=== PATIENT | female | born 1985 | race African-American/Black ===

== ENCOUNTER 2016-11-20 21:07 | Emergency (ER) | payer OTHER ==
[~2016-11-20] VITALS: Ht 167.6 cm; Wt 89.4 kg
[~2016-11-20 21:07] MED LIST: ASPIRIN EC81 M1 PO; AURALGAN EAR DR14 ML OT; COUMADIN 10MG T10 M1 PO; COUMADIN 5 MG TA5 M1 PO; COUMADIN PO; COUMADIN5 MG; ENOXAPARIN120 MG/0.8 SQ; ENOXAPARIN40 MG/0.1 SUBQ; FLEXERIL PO; LORTABELXR PO; NEXIUM40 MG PO; NORCO 5-325 TA1 EACH PO; ONDANSETRON ODT4 MG PO; PERCOCET 5-3251 EACH PO; PHENERGAN 25 MG25 M1 PO; PHENERGAN 25 MG25 MG PO; PRENATAL TABLE1 EAC3 PO; PREVACID 30MG C30 M1 PO; PROPOXYPHENE HC65 M1 OR; PROTONIX 20 MG20 M1 PO; PROTONIX40 MG PO; REGLAN 5 MG TAB5 M1 GT; TRAMADOL; TRAMADOL 50 MG50 MG PO; ZOFRAN4 MG PO; [UNRECOGNIZED DRUG - OTHER] PO
[2016-11-20] MEDS ORDERED: COUMADIN7.5 MG PO (21:33)
[2016-11-20 21:55] LABS: ABSOLUTE NEUTROPHILS 7.6 thou/uL (1.4-8.2); BASOPHILS 0.6 % (0.0-2.0); EOSINOPHILS 0.9 % (0.0-3.0); HEMATOCRIT 36.3 % (37.0-47.0); HEMOGLOBIN 11.9 gm/dL (12.0-15.0); LYMPHOCYTES 15.8 % (24.0-44.0); MANUAL DIFF NO; MCHC 32.8 g/dL (28.0-37.0); MCV 82.1 fL (80.0-100.0); PLATELET COUNT 225 thou/uL (150-400); POLYS 77.7 % (36.0-66.0); RBC 4.42 mil/uL (4.20-5.00); RDW 16.7 % (10.5-14.5); WBC 9.7 thou/uL (4.0-11.0)
[2016-11-20 21:58] LABS: CALCIUM 9.5 mg/dL (8.5-10.1); CREATININE 1.3 mg/dL (0.6-1.0); POTASSIUM 3.6 mmol/L (3.5-5.1)
[2016-11-20 23:26] LABS: URINE BILIRUBIN NEGATIVE (Negative); URINE BLOOD 2+ (Negative); URINE COLOR YELLOW; URINE GLUCOSE-RANDOM* NEGATIVE (Negative); URINE KETONES NEGATIVE (Negative); URINE NITRITE POSITIVE (Negative); URINE PROTEIN (DIPSTICK) 2+ (Negative); URINE UROBILINOGEN 0.2 E.U./dl (0.2-1.0)
[2016-11-20 23:42] LABS: CASTS None Seen /LPF (None Seen); SQUAMOUS None Seen /LPF (0-3); URINE WBC >25 Many /HPF (0-5)
[2016-11-20 23:43] LABS: CRYSTALS None Seen /LPF (None Seen)
[2016-11-20] MEDS ORDERED: KEFLEX500 MG PO (23:46)
[2016-11-20] MEDS ORDERED: NAPROSYN500 MG PO (23:46)
[2016-11-21 00:15] VITALS: BP 107/50
[2016-11-21] MEDS ORDERED: OXYCODONE HCL 55 MG PO (19:48)
== END 2016-11-21 00:15 | disposition home or self-care (01) ==
LOC: ER 21:07
PROVIDERS: Physician Assistant
DX: N39.0 Urinary tract infection, site not specified (principal); E65 Localized adiposity; F10.99 Alcohol use, unspecified with unspecified alcohol-induced disorder; Z86.711 Personal history of pulmonary embolism; Z88.8 Allergy status to other drugs, medicaments and biological substances

== ENCOUNTER 2016-11-21 15:28 | Inpatient (IN) | payer OTHER ==
[~2016-11-21] VITALS: Ht 167.6 cm; Wt 102.4 kg
--- NOTE | ~2016-11-21 | HC ---
[facility] [address] CONSULTATION Name: DESMOND FIGUEROA Room #: 309-P ADM IN M.R.#: [id number] Admission: 11/21/16 Attend Phys: José Antonio Walker MD Discharge: Date of : 89 Report #: [id number] THIS REPORT FOR: //name// CC: José Antonio HOPKINS REASON FOR CONSULTATION: Lower abdominal pain, rule out mesh infection. HISTORY OF PRESENT ILLNESS: The patient is a 31-year-old who was admitted on . She has been complaining of lower abdominal pain that started Friday. The patient has had fever. The patient was also found to have E. coli . Initially thinking that she had urinary tract infection. 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 Dr. Hannah was not convinced with that. He was concerned about the mesh that she has and consultation is placed for that. The patient has had a complicated surgical history starting in 01/2016. Apparently, she has some kind of obstruction or infection and had multiple resection of bowel. Then in 05/2016 the patient had a hernia repair in the lower transverse incision. She says that maybe it is biological implant use. I do not have report from neither surgeries. This was performed by Dr. Jasper Aquino. The patient was asked why she did not go to [place], she said she now lives in this area. She has had nausea, no vomiting. The pain is in the lower part of her abdomen. The patient did have a CT performed. No obvious infection identified. I did review it. I believe the mesh area has slight thickening, but there is no fluid around it or air. I can see several staple lines on the CT scan and 3 different spots. There is a large cystic structure in the right side, possibly ovary. PHYSICAL EXAMINATION: The patient is alert. She does have pannus in the lower abdomen. Her scar is pull downward. Where she does have lower tenderness, which is mild. There is no mass, guarding. There is no redness or cellulitis of the wall. IMPRESSION: The patient with bacteremia, etiology is known. She does have a large cyst in her ovary. Ultrasound would be helpful. I do think the mesh that she had from May surgery is infected but would think it would be unusual to have Escherichia coli in that. We will try to get operative report to review that. At this point, I recommend continue antibiotic treatment. With her having so many surgeries I wonder if her pain could have been from partial obstruction. If she did have a biological material used for the mesh repair, I would think that would be fairly resistant to infection. I do not think the mesh looks like its anterior to the wall. I do think she has any connection to intestine or fistula development. By: [id number] Alber Oscar MD /nt
--- NOTE | ~2016-11-21 | HC ---
[facility] [place] [address] CONSULTATION Name: DESMOND FIGUEROA Room #: 309-P ADM IN M.R.#: [id number] Admission: 11/21/16 Attend Phys: Arpit Rosales DO Discharge: Date of : 89 Report #: [id number] THIS REPORT FOR: //name// CC: EMI Rosales REASON FOR CONSULTATION: I was asked to evaluate concerning Gram-negative bacteremia. HISTORY OF PRESENT ILLNESS: The patient is a 31-year-old who presents with now a 3-day history of increased abdominal pain in the lower abdomen. She notes a history of a ventral hernia with compromised bowel that was treated by at [facility] in May 2016. She has also had a small-bowel obstruction in January 2016. She has had a tubal ligation. She has had diagnosis of obstructive sleep apnea. She has also had anxiety and depression. She was evaluated in the emergency room on 11/20/2016. There, she had positive urinalysis with pyuria and bacteriuria. Treated with cephalexin. She later returned the next day with fever to 103 degrees. She has had chills, headache, and mild nausea. Denies any dysuria, frequency, or flank pain. Still describes lower abdominal pain, which has persisted. She has had some constipation. There has been no reported diarrhea. No vomiting. Appetite has been fair. Denies any trauma. She is on Coumadin for pulmonary embolus. She has been on this for several years. ALLERGIES: TAPE. MEDICATIONS: She was on Coumadin, pain meds, and cephalexin, now on ceftriaxone. PAST MEDICAL HISTORY: As noted above. FAMILY HISTORY: Noncontributory. SOCIAL HISTORY: Nonsmoker, no significant alcohol intake. 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 She has had C-sections. No HIV risk factors. REVIEW OF SYSTEMS: Noted above with no cough, sputum, or rash. PHYSICAL EXAMINATION: VITAL SIGNS: Maximum temperature has been 103 degrees. She is currently afebrile and hemodynamically stable. GENERAL: The patient was lying in bed, in no acute distress. She was obese. SKIN: Unremarkable. LYMPH: Unremarkable. HEENT: Unremarkable. CHEST: Clear. [address] [address] CONSULTATION Name: DESMOND FIGUEROA Room #: 309-P [facility] IN M.R.#: [id number] Admission: 11/21/16 Attend Phys: Arpit Rosales, Discharge: Date of : 89 Report #: [id number] HEART: Regular without murmur. ABDOMEN: Had a moderately large abdominal pannus. Beneath this, there is a scar from her lower abdominal incision where she had ventral hernia repair. She has marked tenderness in the periumbilical to lower abdomen to the suprapubic region. She had fullness in this area with no definite mass identified. A bit difficult exam due to her size. No hepatosplenomegaly or other masses. Tenderness was localized mostly toward the midline. No CVA tenderness. EXTREMITIES: Unremarkable. NEUROLOGIC: Normal. LABORATORY STUDIES: Sodium 133, potassium 4, bicarbonate 27, creatinine 1. Liver function test normal. Lipase normal. INR 1. Hemoglobin 10.4, platelet count 131,000, white count 4.2 with unremarkable differential. Beta-hCG negative. Sedimentation rate 56. Urinalysis, wbc's and bacteria present. Urine culture was not done. Blood cultures showing Gram-negative bacilli 2 of 2, identification further pending. Ultrasound of the abdomen shows a horseshoe kidney and mild increasing common bile duct size. CT scan of the abdomen and pelvis shows inflammatory changes to abdominal pannus. No definite fluid collection identified. IMPRESSION: A 31-year-old with fever and abdominal pain. I suspect infection related to her abdominal pannus and ventral hernia repair. Despite not being able to identify an abscess on the CT scan, her examination and history suggest such. She also has cystitis, which is clinically asymptomatic. 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 He will take this into consideration pending further culture results. We would therefore recommend continuing Gram-negative coverage and we would have general surgery evaluate her abdominal process. By: [id number] [id number] Eliot Hannah MD /nt
[~2016-11-21 15:28] MED LIST changes: +COUMADIN7.5 MG PO; +KEFLEX500 MG PO; +NAPROSYN500 MG PO
[2016-11-21 15:33] VITALS: BP 88/65
[2016-11-21 16:20] LABS: HEMATOCRIT 38.3 % (37.0-47.0); HEMOGLOBIN 12.6 gm/dL (12.0-15.0); MCHC 32.8 g/dL (28.0-37.0); MCV 82.2 fL (80.0-100.0); PLATELET COUNT 190 thou/uL (150-400); RBC 4.66 mil/uL (4.20-5.00); RDW 16.7 % (10.5-14.5); WBC 6.8 thou/uL (4.0-11.0)
[2016-11-21 16:24] LABS: MANUAL DIFF YES
[2016-11-21 16:32] LABS: CALCIUM 9.9 mg/dL (8.5-10.1); CREATININE 1.3 mg/dL (0.6-1.0); POTASSIUM 3.9 mmol/L (3.5-5.1)
[2016-11-21 16:37] LABS: ALBUMIN 3.8 g/dL (3.4-5.0); TOTAL BILIRUBIN 0.7 mg/dL (<0.1-1.0); TOTAL PROTEIN 8.6 g/dL (6.4-8.2)
[2016-11-21 16:50] LABS: ABSOLUTE NEUTROPHILS 6.2 thou/uL (1.4-8.2); TOTAL CELL COUNT 100
[2016-11-21 16:51] LABS: ANISOCYTOSIS 1+; PLATELET ESTIMATE NORMAL
[2016-11-21 18:21] VITALS: BP 101/41
[2016-11-21 18:23] LABS: URINE BILIRUBIN NEGATIVE (Negative); URINE BLOOD 2+ (Negative); URINE COLOR YELLOW; URINE GLUCOSE-RANDOM* NEGATIVE (Negative); URINE KETONES NEGATIVE (Negative); URINE NITRITE NEGATIVE (Negative); URINE PROTEIN (DIPSTICK) TRACE (Negative); URINE SPECIFIC GRAVITY <= 1.005 (1.003-1.035); URINE UROBILINOGEN 0.2 E.U./dl (0.2-1.0)
[2016-11-21 18:29] LABS: SQUAMOUS 0-3 Few /LPF (0-3); URINE RBC 0-2 Rare /HPF (0-2); URINE WBC >25 Many /HPF (0-5)
[2016-11-21 18:30] LABS: CASTS None Seen /LPF (None Seen); CRYSTALS None Seen /LPF (None Seen)
[2016-11-21 19:05] VITALS: BP 104/50
[2016-11-21 19:31] LABS: PROTIME 10.7 Seconds (9.3-11.4)
[2016-11-21 19:40] VITALS: BP 100/48
[2016-11-21] MEDS ORDERED: OXYCODONE HCL 55 MG PO (19:48)
[2016-11-22 00:05] VITALS: BP 103/51
[2016-11-22 04:30] VITALS: BP 98/57
[2016-11-22 06:33] LABS: HEMATOCRIT 36.1 % (37.0-47.0); HEMOGLOBIN 11.9 gm/dL (12.0-15.0); MCH 27.4 pg (26.0-34.0); MCHC 32.9 g/dL (28.0-37.0); MCV 83.2 fL (80.0-100.0); PLATELET COUNT 153 thou/uL (150-400); RBC 4.34 mil/uL (4.20-5.00); RDW 16.8 % (10.5-14.5)
[2016-11-22 06:38] LABS: CALCIUM 8.2 mg/dL (8.5-10.1); CREATININE 1.1 mg/dL (0.6-1.0)
[2016-11-22 06:40] LABS: MANUAL DIFF YES
[2016-11-22 08:06] LABS: ABSOLUTE NEUTROPHILS 7.1 thou/uL (1.4-8.2); TOTAL CELL COUNT 100
[2016-11-22 08:07] LABS: ANISOCYTOSIS 1+
[2016-11-22 08:15] VITALS: BP 97/52
[2016-11-22 12:17] LABS: PROTIME 10.7 Seconds (9.3-11.4)
[2016-11-22 16:00] VITALS: BP 119/71
[2016-11-22 19:35] VITALS: BP 104/60
[2016-11-23 03:40] VITALS: BP 114/55
[2016-11-23 07:10] LABS: ABSOLUTE NEUTROPHILS 2.8 thou/uL (1.4-8.2); BASOPHILS 0.7 % (0.0-2.0); EOSINOPHILS 0.4 % (0.0-3.0); HEMATOCRIT 32.4 % (37.0-47.0); HEMOGLOBIN 10.4 gm/dL (12.0-15.0); LYMPHOCYTES 21.3 % (24.0-44.0); MCH 26.7 pg (26.0-34.0); MCHC 32.1 g/dL (28.0-37.0); MCV 83.2 fL (80.0-100.0); MONOCYTES 10.6 % (1.0-8.0); PLATELET COUNT 131 thou/uL (150-400); RBC 3.89 mil/uL (4.20-5.00); RDW 16.5 % (10.5-14.5); WBC 4.2 thou/uL (4.0-11.0)
[2016-11-23 07:13] LABS: MANUAL DIFF NO
[2016-11-23 07:19] LABS: CALCIUM 8.1 mg/dL (8.5-10.1)
[2016-11-23 07:21] LABS: PROTIME 10.4 Seconds (9.3-11.4)
[2016-11-23 08:11] VITALS: BP 103/58
[2016-11-23 15:54] VITALS: BP 120/61
[2016-11-23 19:10] VITALS: BP 108/57
[2016-11-24 05:00] LABS: INR 1.1; PROTIME 11.1 Seconds (9.3-11.4)
[2016-11-24 05:30] VITALS: BP 112/63
[2016-11-24 08:41] VITALS: BP 103/65
[2016-11-24 16:06] VITALS: BP 107/66
[2016-11-25 04:44] VITALS: BP 114/74
[2016-11-25 06:35] LABS: HEMATOCRIT 34.9 % (37.0-47.0); HEMOGLOBIN 11.4 gm/dL (12.0-15.0); MCHC 32.8 g/dL (28.0-37.0); MCV 82.5 fL (80.0-100.0); PLATELET COUNT 195 thou/uL (150-400); RBC 4.24 mil/uL (4.20-5.00); RDW 16.8 % (10.5-14.5); WBC 4.1 thou/uL (4.0-11.0)
[2016-11-25 06:36] LABS: MANUAL DIFF YES
[2016-11-25 06:48] LABS: INR 1.4; PROTIME 14.4 Seconds (9.3-11.4)
[2016-11-25 06:52] LABS: CALCIUM 8.8 mg/dL (8.5-10.1); POTASSIUM 4.3 mmol/L (3.5-5.1)
[2016-11-25 07:38] VITALS: BP 110/48
[2016-11-25 10:19] LABS: ABSOLUTE NEUTROPHILS 1.4 thou/uL (1.4-8.2); ANISOCYTOSIS SLIGHT; ATYPICAL LYMPHS 3 %; LARGE PLATELETS OCCASIONAL; POIKILOCYTOSIS SLIGHT; TOTAL CELL COUNT 100
[2016-11-25] MEDS ORDERED: BACTRIM DS TAB1 EACH PO (17:39)
[2016-11-25] MEDS ORDERED: OXYCODONE HCL 55 MG PO (17:39)
[2016-11-25 19:32] VITALS: BP 122/81
[2016-11-26 04:20] VITALS: BP 123/58
[2016-11-26 07:13] LABS: ALBUMIN 3.2 g/dL (3.4-5.0); ALKALINE PHOSPHATASE 81 U/L (46-116); DIRECT BILIRUBIN < 0.1 mg/dL (<0.1-0.3); SGOT 20 U/L (15-37); SGPT 28 U/L (30-65); TOTAL BILIRUBIN 0.1 mg/dL (<0.1-1.0); TOTAL PROTEIN 8.3 g/dL (6.4-8.2)
[2016-11-26 07:50] VITALS: BP 110/81
[2016-11-26 10:28] LABS: INR 1.7; PROTIME 17.6 Seconds (9.3-11.4)
[2016-11-26 16:01] VITALS: BP 107/69
[2016-11-26 19:06] VITALS: BP 107/69
== END 2016-11-26 19:22 | disposition home or self-care (01) | DRG 690 ==
LOC: ER 15:28 → 3N 18:05 → 4S 18:05 → EROBS 18:05 → 4S 19:41 → 3N 11-22 15:19 → ENTRNSPT 11-26 19:14 → 3N 11-26 19:22
PROVIDERS: Hospitalist; Internal Medicine Endocrinology, Diabetes & Metabolism; Internal Medicine Geriatric Medicine; Physician Assistant; Specialist
DX: N10 Acute pyelonephritis (principal); R65.10 Systemic inflammatory response syndrome (SIRS) of non-infectious origin without acute organ dysfunction; M79.3 Panniculitis, unspecified; D64.9 Anemia, unspecified; B96.20 Unspecified Escherichia coli [E. coli] as the cause of diseases classified elsewhere; Z86.711 Personal history of pulmonary embolism; Z79.899 Other long term (current) drug therapy; Z88.8 Allergy status to other drugs, medicaments and biological substances; Z90.710 Acquired absence of both cervix and uterus
CPT/HCPCS: 10094; 10195

== ENCOUNTER 2020-09-24 16:06 | Inpatient (IN) | payer OTHER ==
[~2020-09-24] VITALS: Ht 170.2 cm; Wt 133.5 kg
[2020-09-24 16:06] VITALS: BP 127/94
[~2020-09-24 16:06] MED LIST changes: +BACTRIM DS TAB1 EACH PO; +OXYCODONE HCL 55 MG PO
[2020-09-24 16:37] LABS: BE(vivo) 2.4 mmol/L (-2 to +3); PCO2 36.5 mmHg (35.0-45.0); PO2 61.1 mmHg (80.0-100.0)
[2020-09-24 16:44] LABS: ABSOLUTE NEUTROPHILS 5.9 thou/uL (1.4-8.2); BASOPHILS 0.9 % (0.0-2.0); EOSINOPHILS 0.3 % (0.0-3.0); HEMATOCRIT 32.7 % (37.0-47.0); HEMOGLOBIN 10.3 gm/dL (12.0-15.0); LYMPHOCYTES 16.7 % (24.0-44.0); MCH 26.1 pg (26.0-34.0); MCHC 31.4 g/dL (28.0-37.0); MCV 82.9 fL (80.0-100.0); MONOCYTES 6.4 % (1.0-8.0); PLATELET COUNT 284 thou/uL (150-400); POLYS 75.7 % (36.0-66.0); RBC 3.95 mil/uL (4.20-5.00); RDW 18.1 % (10.5-14.5); WBC 7.8 thou/uL (4.0-11.0)
[2020-09-24 16:52] LABS: ANION GAP 12 mmol/L (7-16); BUN 11 mg/dL (7-18); CALCIUM 8.6 mg/dL (8.5-10.1); CHLORIDE 102 mmol/L (98-107); CO2 26 mmol/L (21-32); GLUCOSE 101 mg/dL (74-106); POTASSIUM 3.4 mmol/L (3.5-5.1); SODIUM 140 mmol/L (136-145)
[2020-09-24 17:02] LABS: ALBUMIN 3.2 g/dL (3.4-5.0); SGOT 35 U/L (15-37); SGPT 41 U/L (30-65); TOTAL BILIRUBIN 0.2 mg/dL (0.2-1.0); TROPONIN-I <0.06 ng/mL (<0.06)
[2020-09-24] MEDS ORDERED: COUGH & CHEST177 ML PO (17:29)
[2020-09-24] MEDS ORDERED: PREDNISONE 20 M20 MG PO (17:30)
[2020-09-24] MEDS ORDERED: PROAIR HFA8.5 GM INH (17:30)
[2020-09-24] MEDS ORDERED: JANTOVEN5 MG PO (17:30)
[2020-09-24 18:19] VITALS: BP 165/75
[2020-09-24 18:22] LABS: APTT 20.3 Seconds (24.5-32.8); INR 0.97; PROTIME 10.6 Seconds (10.5-12.1)
[2020-09-24 18:26] VITALS: BP 155/80
[2020-09-24 18:59] VITALS: BP 129/68
[2020-09-24 19:41] LABS: ANISOCYTOSIS 2+; HYPOCHROMASIA 1+
[2020-09-24 20:23] LABS: CHOLESTEROL 139 mg/dL (<200); HDL CHOLESTEROL 60 mg/dL (>40); LDL CHOLESTEROL 64 mg/dL (<100); TC:HDL 2.3 Ratio (Not establshd); TRIGLYCERIDE 76 mg/dL (<150); VLDL 15 mg/dL (<40)
[2020-09-24 23:42] VITALS: BP 126/59
[2020-09-25] VITALS (8 sets, daily range): BP systolic 121–147; BP diastolic 71–87
--- NOTE | 2020-09-25 07:50 | EKG ---
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 : 1985 Requested By: Daniel Maravilla Order Number: [id number] MD: Harvey Meeks Measurements Intervals [place] Rate: 60 P: 39 WV: 163 QRS: 64 QRSD: 61 T: 192 QT: 605 QTc: 605 Interpretive Statements Sinus arrhythmia Nonspecific T abnormalities, diffuse leads Prolonged QT interval Compared to ECG 09/24/2020 16:08:48 Prolonged QT interval now present Sinus rhythm no longer present T-wave abnormality still present Electronically Signed On 09-25-2020 7:50:35 CDT by Harvey Meeks [email or web address] <ELECTRONICALLY SIGNED> By: Harvey Meeks MD, [facility] 09/25/20 0750 1724 1724 Harvey Meeks MD, [facility] /EPI
--- NOTE | 2020-09-25 07:50 | EKG ---
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1985 Requested By: Daniel Maravilla Order Number: [id number] MD: Harvey Meeks Measurements Intervals [place] Rate: 73 P: 39 OR: 158 QRS: 36 QRSD: 88 T: 205 QT: 399 QTc: 440 Interpretive Statements Sinus rhythm Nonspecific T abnormalities, diffuse leads Compared to ECG 07/22/2013 15:33:09 T-wave abnormality now present ST (T wave) deviation no longer present Possible ischemia no longer present Electronically Signed On 09-25-2020 7:50:32 CDT by Harvey Meeks [email or web address] <ELECTRONICALLY SIGNED> By: Harvey Meeks MD, [facility] 09/25/20 0750 1608 1608 Harvey Meeks MD, [facility] /EPI
--- NOTE | 2020-09-25 07:51 | EKG ---
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 : 1985 Requested By: Devin Thornton Order Number: [id number] MD: Harvey Meeks Measurements Intervals [place] Rate: 78 P: 54 [place]: 143 QRS: 46 QRSD: 81 T: -59 QT: 421 QTc: 480 Interpretive Statements Sinus rhythm Nonspecific T abnormalities, lateral leads Borderline prolonged QT interval Compared to ECG 09/24/2020 17:24:20 Sinus arrhythmia no longer present T-wave abnormality still present Electronically Signed On 09-25-2020 7:51:23 CDT by Harvey Meeks [email or web address] <ELECTRONICALLY SIGNED> By: Harvey Meeks MD, [facility] 09/25/20 0751 0404 0404 Harvey Meeks MD, [facility] /EPI
--- NOTE | 2020-09-25 11:00 | NUR ---
Chart review. Discussed during los. CM visited with her at bedside. Intro to cm and dcp. She lives home with sig other. Independent when feeling ok. Had oxygen at home in the past and no longer has home o2. She will need outpt sleep study. PCP is at the the [facility] office. No dme. manage own medications. No hh or rehab in the past. Will cont following as needed for dc needs.
--- NOTE | 2020-09-25 13:45 | 2DMMODE ---
[facility] [place] [address] 2 D/M-MODE ECHOCARDIOGRAM Name: DESMOND FIGUEROA Room #: 210-P ADM IN M.R.#: [id number] Admission: 09/24/20 Attend Phys: Mohit Sidhu Discharge: Date of : 89 Report #: [id number] THIS REPORT FOR: cc: FAM - No family physician/PCP FAM - No family physician/PCP Reji Torres MD ~ APPROVED REPORT Study performed: 09/25/2020 12:51:34 EXAM: Comprehensive 2D, Doppler, and color-flow Echocardiogram Patient Location: Bedside Room #: 210 Status: routine BSA: 2.26 HR: 83 bpm BP: 132/79 mmHg Rhythm: NSR Other Information Study Quality: Adequate Indications Short of breath, chest pain. Hx: PE, morbid obesity. 2D Dimensions IVSd: 8.51 (7-11mm) LVOT Diam: 20.01 (18-24mm) LVDd: 51.41 mm PWd: 9.66 (7-11mm) Ascending Ao: 27.96 (22-36mm) LVDs: 33.58 (25-40mm) Left Atrium: 37.03 (27-40mm) Aortic Root: 27.92 mm Volumes Left Atrial Volume (Systole) Single Plane 4CH: 46.79 mL Single Plane 2CH: 54.70 mL LA ESV Index: 23.00 mL/m2 Aortic Valve AoV Peak Raymon.: 1.78 m/s AO Peak Gr.: 12.71 mmHg LVOT Max P.57 mmHg LVOT Max V: 1.18 m/s LINDA Vmax: 2.08 cm2 [facility] [address] [place] [address] 2 D/M-MODE ECHOCARDIOGRAM Name: DESMOND FIGUEROA Room #: 210-P [facility] IN [facility]#: [id number] Admission: 09/24/20 Attend Phys: Mohit Henry May Discharge: Date of : 89 Report #: [id number] Mitral Valve E/A Ratio: 1.3 MV Decel. Time: 274.60 ms MV E Max Raymon.: 1.15 m/s MV A Raymon.: 0.91 m/s MV PHT: 79.63 ms IVRT: 59.98 ms Pulmonary Valve PV Peak Raymon.: 1.00 m/s PV Peak Gr.: 3.99 mmHg Pulmonary Vein P Vein S: 0.63 m/s P Vein A: 0.32 m/s P Vein D: 0.59 m/s P Vein A Dur.: 76.1 msec P Vein S/D Ratio: 1.07 Tricuspid Valve TR Peak Raymon.: 2.93 m/s RAP Estimate: 10.00 mmHg TR Peak Gr.: 34.23 mmHg PA Pressure: 44.00 mmHg Left Ventricle The left ventricle is normal size. There is normal LV segmental wall motion. There is normal left ventricular wall thickness. Left ventricular systolic function is normal. LVEF is 60-65%. The left ventricular diastolic function is normal. Right Ventricle The right ventricle is normal size. The right ventricular systolic function is normal. Atria The left atrium size is normal. The right atrium size is normal. Aortic Valve The aortic valve is normal in structure. No aortic regurgitation is present. There is no aortic valvular stenosis. Mitral Valve The mitral valve is normal in structure. Mild to moderate mitral regurgitation with an eccentric jet. No evidence of mitral valve stenosis. Tricuspid Valve [facility] [address] [place] [address] 2 D/M-MODE ECHOCARDIOGRAM Name: DESMOND FIGUEROA Room #: 210-[facility] IN M.R.#: [id number] Admission: 09/24/20 Attend Phys: Mohit Dunlap Discharge: Date of : 89 Report #: [id number] The tricuspid valve is normal in structure. Moderate tricuspid regurgitation. Estimated PAP is 40-45mmHg. Pulmonic Valve The pulmonary valve is normal in structure. There is no pulmonic valvular regurgitation. Great Vessels The aortic root is normal in size. The ascending aorta is normal in size. IVC is dilated and partially collapses. Pericardium There is no pericardial effusion. <Conclusion> The left ventricle is normal size. Left ventricular systolic function is normal. LVEF is 60-65%. The right ventricle is normal size. The left atrium size is normal. The aortic valve is normal in structure. The mitral valve is normal in structure. Mild to moderate mitral regurgitation with an eccentric jet. The tricuspid valve is normal in structure. Moderate tricuspid regurgitation. Estimated PAP is 40-45mmHg. The pulmonary valve is normal in structure. The aortic root is normal in size. There is no pericardial effusion. <ELECTRONICALLY SIGNED> By: Reji Torres MD 09/25/20 1345 1345 1345 Reji Torres MD /INF
[2020-09-26 03:35] LABS: INR 1.28; PROTIME 13.8 Seconds (10.5-12.1)
[2020-09-26 03:40] VITALS: BP 140/78
--- NOTE | 2020-09-26 07:13 | NUR ---
USES THE BIPAP THIS SHIFT;TOOK A BREAK FROM THE BIPAP FOR FEW HOURS TO CALL HER [facility].PAIN FAIRLY CONTROLLED.COMPLAIN IF ITCHINESS;BENADRYL GIVEN.MONITOR SHOWS SINUS DONNELL ARRHYTHMIA.POC CONTINUED.
[2020-09-26 08:00] VITALS: BP 137/83
[2020-09-26 16:52] VITALS: BP 138/71
[2020-09-26 20:15] VITALS: BP 133/70
[2020-09-27 04:34] LABS: HEMOGLOBIN 9.7 gm/dL (12.0-15.0); MCH 26.3 pg (26.0-34.0); MCHC 31.2 g/dL (28.0-37.0); MCV 84.3 fL (80.0-100.0); RBC 3.68 mil/uL (4.20-5.00); RDW 18.3 % (10.5-14.5); WBC 12.4 thou/uL (4.0-11.0)
[2020-09-27 04:45] VITALS: BP 126/72
[2020-09-27 05:02] LABS: INR 1.8; PROTIME 19.1 Seconds (10.5-12.1)
[2020-09-27 07:00] VITALS: BP 142/88
[2020-09-27] MEDS ORDERED: PREDNISONE 20 M20 M1 PO (11:01)
[2020-09-27] MEDS ORDERED: PEPCID20 MG PO (11:01)
[2020-09-27] MEDS ORDERED: ACETAMINOPHEN325 M1 PO (11:01)
[2020-09-27] MEDS ORDERED: MELATONIN5 M1 PO (11:01)
[2020-09-27] MEDS ORDERED: IBUPROFEN 200200 M1 PO (11:01)
[2020-09-27] MEDS ORDERED: PULMICORT0.5 MG/21 INH (11:01)
[2020-09-27] MEDS ORDERED: HYDROCODON-ACE1 EAC7 PO (11:01)
[2020-09-27] MEDS ORDERED: TESSALON PERLE100 MG PO (11:01)
[2020-09-27 11:28] VITALS: BP 142/88
== END 2020-09-27 13:24 | disposition home or self-care (01) | DRG 193 ==
LOC: ER 16:06 → EROBS 18:05 → 2N 18:05
PROVIDERS: Emergency Medicine; Internal Medicine; Nurse Practitioner Family; ADMIT Hospitalist; ATTEND Hospitalist
PROC: 5A09357 Assistance with Respiratory Ventilation, Less than 24 Consecutive Hours, Continuous Positive Airway Pressure (ICD-10-PCS; principal; 2020-09-25)
PROC: 5A09357 Assistance with Respiratory Ventilation, Less than 24 Consecutive Hours, Continuous Positive Airway Pressure (ICD-10-PCS; 2020-09-26)
DX: J18.9 Pneumonia, unspecified organism (principal); J96.21 Acute and chronic respiratory failure with hypoxia; E87.2 Acidosis; D68.51 Activated protein C resistance; J44.0 Chronic obstructive pulmonary disease with (acute) lower respiratory infection; J44.1 Chronic obstructive pulmonary disease with (acute) exacerbation; D68.59 Other primary thrombophilia; Z68.42 Body mass index [BMI] 45.0-49.9, adult; G47.33 Obstructive sleep apnea (adult) (pediatric); I27.20 Pulmonary hypertension, unspecified; E66.01 Morbid (severe) obesity due to excess calories; Z20.822 Contact with and (suspected) exposure to COVID-19; Z91.19 Patient's noncompliance with other medical treatment and regimen; Z90.49 Acquired absence of other specified parts of digestive tract; Z82.49 Family history of ischemic heart disease and other diseases of the circulatory system; Z86.711 Personal history of pulmonary embolism
CPT/HCPCS: 10081